=== PATIENT | female | born 1955 | race Two or more races ===

== ENCOUNTER 2017-08-27 11:38 | Outpatient (CLI) | payer OTHER ==
[~2017-08-27 11:38] MED LIST: ATACAND4 MG; ATENOLOL50 MG; ZANTAC150 M3
== END 2017-08-27 16:48 | disposition home or self-care (01) ==
LOC: MAMO-SONO 11:38
DX: N64.4 Mastodynia (principal); Z12.31 Encounter for screening mammogram for malignant neoplasm of breast